=== PATIENT | male | born 1945 | race Caucasian/White ===

== ENCOUNTER 2018-11-25 21:30 | Emergency (ER) | payer MEDICARE, OTHER ==
[2018-11-25] MEDS ORDERED: Magnesium Sulfate 2 GM IV* 2 GM/50 ML BAG IVPB ONE (21:53)
--- NOTE | 2018-11-25 21:55 | ED ---
Shortness of Breath - HPI Summary HPI Summary: This patient is a 73 old M presenting to [facility] with a chief complaint of SOB since prior to arrival. Pt was originally in ED accompanying , and then when trying to leave ED, he had increased difficult breathing. Pt is usually on 3L O2 via nasal cannula. Earlier today, he had shots in neck for pain, and he is not allowed to have prednisone according to his doctor. Pt has a Hx of COPD. - History of Current Complaint Chief Complaint: EDShortnessOfBreath Time Seen by Provider: 11/25/18 21:43 Hx Obtained From: Patient Onset/Duration: Sudden Onset, Lasting Minutes, Still Present Current Severity: Mild Dyspnea At: Rest Aggravating Factors: Nothing Alleviating Factors: Other - nebulizer - Allergy/Home Medications Allergies/Adverse Reactions: Allergies Allergy/AdvReac Type Severity Reaction Status Date / Time ciprofloxacin [From Cipro] Allergy Unknown Verified 11/25/18 21:37 Reaction Details diazepam [From Valium] Allergy Unknown Verified 11/25/18 21:37 Reaction Details diltiazem Allergy Unknown Verified 11/25/18 21:37 Reaction Details duloxetine [From Cymbalta] Allergy Unknown Verified 11/25/18 21:37 Reaction Details pregabalin [From Lyrica] Allergy Unknown Verified 11/25/18 21:37 Reaction Details PMH/Surg Hx/FS Hx/Imm Hx Cardiovascular History: Reports: Hx Hypertension, Other Cardiovascular Problems/ Disorders - Heart Disease Respiratory History: Reports: Hx Chronic Obstructive Pulmonary Disease (COPD), Hx Seasonal Allergies Musculoskeletal History: Reports: Hx Arthritis, Other Musculoskeletal History - Hx of Lumbar Epidural Injection 2011 Psychiatric History: Reports: Hx Anxiety, Hx Depression, Hx Bipolar Disorder - Surgical History Surgery Procedure, Year, and Place: Cardiac Cath with pacemaker; Multiple surgery for fractured right leg; Spine surgery; Left knee MMT and remove r CTS; Cardiac Stents 3 Ablation,cardiac pacemaker; right toe repatir x2; nasal surgery ;Rectal prolapse and muscosal repair. Infectious Disease History: No Infectious Disease History: Denies: Traveled Outside the [place] in Last 30 Days - Social History Lives: With Family Alcohol Use: None Hx Substance Use: No Substance Use Type: Reports: None Substance Use Comment - Amount & Last Used: hydrocodone Hx Tobacco Use: Yes Smoking Status (MU): Former Smoker Type: Cigarettes Review of Systems Negative: Fever Positive: Shortness Of Breath All Other Systems Reviewed And Are Negative: Yes Physical Exam - Summary Physical Exam Summary: Constitutional: Well-developed, Well-nourished, Alert. (-) Distressed Skin: Warm, HENT: Normocephalic; Atraumatic Eyes: Conjunctiva normal Neck: Musculoskeletal ROM normal neck. (-) JVD, (-) Stridor, (-) Tracheal deviation, Bandage over cervical spine, not tender over location of bandages. Cardio: Rhythm regular, tachycardic, Heart sounds normal; Intact distal pulses; The pedal pulses are 2+ and symmetric. Radial pulses are 2+ and symmetric. Pulmonary/Chest wall: Effort normal. (-) Respiratory distress, (-) Wheezes, (-) Rales, Notably prolonged expiratory phase, diffuse wheezing, tachypnic. Increased work of breathing Abd: Soft, (-) tenderness, (-) Distension, (-) Guarding, (-) Rebound Musculoskeletal: (-) Edema Neuro: Alert, Oriented x3 Psych: Mood and affect Normal Triage Information Reviewed: Yes Vital Signs On Initial Exam: Initial Vitals Temp Pulse Resp BP Pulse Ox 97.8 F 110 20 172/97 94 11/25/18 21:30 11/25/18 21:30 11/25/18 21:30 11/25/18 21:30 11/25/18 21:30 Vital Signs Reviewed: Yes Diagnostics - Vital Signs Vital Signs Temp Pulse Resp BP Pulse Ox 11/25/18 21:30 97.8 F 110 20 172/97 94 - Laboratory Lab Statement: Any lab studies that have been ordered have been reviewed, and results considered in the medical decision making process. Re-Evaluation - Re-Evaluation First Eval Re-Evaluation Time: 11:35 Change: Improved Comment: HR 90, Trace wheezing and end of expiratory phase, no increased work of breathing, O2 sat over 95 with baseline 3 L O2, not tachypnic or tachycardic Course/Dx - Course Course Of Treatment: This patient is a 73 old M presenting to [facility] with a chief complaint of SOB since prior to arrival. Pt was originally in ED accompanying , and then when trying to leave ED, he had increased difficult breathing. Pt is usually on 3L O2 via nasal cannula. Earlier today, he had shots in neck for pain, is not allowed to have prednisone according to his doctor. Pt has a Hx of COPD. In the ED course the patient was given nebulizers , fluids. Pt refused steroids. Trace wheezing and end of expiratory phase, no increased work of breathing, O2 sat over 95 with baseline 3 L O2, not tachypnic or tachycardic, This was probably an acute event of COPD exacerbation due to O2 becoming kinked. Pt is still refusing course of steroid. Pt will follow up with PCP. Pt has entire supply of medication, does not need albuterol or anything, he has it all. Patient will be discharged. The patient is agreeable with this plan. - Diagnoses Provider Diagnoses: COPD with acute exacerbation Discharge - Sign-Out/Discharge Documenting (check all that apply): Patient Departure - Discharge Patient Received Moderate/Deep Sedation with Procedure: No - Discharge Plan Condition: Improved Disposition: HOME Patient Education Materials: COPD (Chronic Obstructive Pulmonary Disease) (ED) Referrals: Nuvia Barcenas [Primary Care Provider] - - Billing Disposition and Condition Condition: IMPROVED Disposition: Home - Attestation Statements Document Initiated by Joseph: Yes Documenting Scribe: Mary Davis Provider For Whom Joseph is Documenting (Include Credential): Dr. Taco Dale MD Scribe Attestation: Mary Vega scribed for Dr. Taco Dale MD on 11/26/18 at 0603. Scribe Documentation Reviewed: Yes Provider Attestation: The documentation as recorded by the Mary blake accurately reflects the service I personally performed and the decisions made by , Dr. Taco Dale MD Status of Scribe Document: Viewed
[2018-11-25] MEDS ORDERED: Lactated Ringers 1000 ML Bag* 1,000 ML IV ONE (22:00)
[2018-11-25] MEDS ORDERED: Albuterol/Ipratropium NEB.SOL* Albuterol 2.5 MG/Ipratropium 0.5 MG 3 ML ONE (22:07)
[2018-11-25] MEDS: Albuterol/Ipratropium NEB.SOL* Albuterol 2.5 MG/Ipratropium 0.5 MG 3 ML INH SCH ×3 (22:09→22:22)
[2018-11-25 23:46] VITALS: BP 114/89
== END 2018-11-26 00:03 | disposition home or self-care (01) ==
LOC: ED 21:30
DX: J44.1 Chronic obstructive pulmonary disease with (acute) exacerbation (principal); I10 Essential (primary) hypertension; Z99.81 Dependence on supplemental oxygen; Z88.1 Allergy status to other antibiotic agents; Z88.8 Allergy status to other drugs, medicaments and biological substances; Z87.891 Personal history of nicotine dependence
CPT/HCPCS: 96361; 96365; 99282; A9270-GY; J3475

== ENCOUNTER 2023-03-22 09:42 | Observation (INO) ==
[2023-03-22] MEDS ORDERED: Haloperidol 5 mg/ml SDV IV/IM 5 MG/ML AMP IM ONE (10:14)
[2023-03-22 10:49] LABS: ABS Lymphocytes 0.3 10^3/uL (1.0-4.8); ABS Monocytes 0.2 10^3/uL (0.0-1.1); ABS Neutrophils 7.8 10^3/uL (1.5-7.6); Eosinophil % 0.4 %; Hematocrit 33.9 % (38-53); Hemoglobin 11.2 g/dL (13.2-16.3); Lymphocyte % 3.9 %; Mean Corpuscular Hemoglobin 27.3 pg (27-33); Mean Corpuscular Volume 82.6 fL (80-97); Mean Platelet Volume 7.3 fL (7.5-11.2); Platelet Count 210 10^3/uL (150-450); Red Cell Distribution Width 15.9 % (12-17); White Blood Count 8.4 10^3/uL (3.6-10.2)
[2023-03-22] MEDS ORDERED: Lactated Ringers 1000 ml BAG 1,000 ML IV ONE (11:15)
[2023-03-22 11:22] LABS: Albumin 4.5 g/dL (3.2-5.2); Albumin/Globulin Ratio 1.4 (1-3); Calcium 9.8 mg/dL (8.6-10.3); Creatinine, Serum 2.13 mg/dL (0.67-1.17); Globulin 3.2 g/dL (2-4); Magnesium 2.5 mg/dL (1.9-2.7); Potassium 4.9 mmol/L (3.5-5.0); Total Bilirubin 0.3 mg/dL (0.2-1.0); Total Protein 7.7 g/dL (6.4-8.9); eGFR CKD-EPI 31.7 (>60)
[2023-03-22 12:32] LABS: High Sensitivity Troponin 1 Hr 11 pg/mL (<20)
[2023-03-22 16:03] LABS: Urine Appearance Cloudy; Urine Bilirubin Negative (Negative); Urine Blood Negative (Negative); Urine Color Yellow; Urine Glucose Negative (Negative); Urine Ketones Negative (Negative); Urine Nitrite Negative (Negative); Urine Protein Negative (Negative); Urine Specific Gravity 1.013 (1.002-1.030); Urine Urobilinogen Negative (Negative)
[2023-03-22 16:17] LABS: Urine Bacteria Absent (Absent); Urine Red Blood Cell Trace(0-2/hpf) (Absent); Urine Squamous Epithelial Cell Present (Absent); Urine White Blood Cell 3+(>20/hpf) (Absent)
[2023-03-22] MEDS ORDERED: cefTRIAXone 1 gm/50 mL D5W 1 GM/50 ML BAG IV ONE (18:44)
[2023-03-22] MEDS ORDERED: NS 0.9% 500 ml BAG 500 ML IV ONE (18:47)
[2023-03-22] MEDS ORDERED: NS 0.9% 1000 ml BAG 1,000 ML IV SCH (19:45)
[2023-03-22] MEDS ORDERED: Dextrose 50% Syringe 50 ml 25 GM/50 ML SYRINGE IV PUSH PRN (21:12)
[2023-03-22] MEDS ORDERED: Albuterol HFA INHALER 8 gm MDI INH PRN (21:37)
[2023-03-22] MEDS ORDERED: HYDROcodone/ACETAMIN 5/325 mg TAB PO PRN (21:45)
[2023-03-22] MEDS ORDERED: Albuterol 2.5mg/3 ml (0.083%) NEB.SOLN INH PRN (21:46)
[2023-03-23 00:51] LABS: Calcium 8.8 mg/dL (8.6-10.3); Creatinine, Serum 1.8 mg/dL (0.67-1.17); Potassium 3.8 mmol/L (3.5-5.0); eGFR CKD-EPI 38.8 (>60)
[2023-03-23 01:23] LABS: TSH Ultra Thyroid Stim Horm 0.38 mcIU/mL (0.34-5.60)
[2023-03-23 05:26] LABS: Calcium 8.9 mg/dL (8.6-10.3); Creatinine, Serum 1.53 mg/dL (0.67-1.17); Potassium 3.6 mmol/L (3.5-5.0); eGFR CKD-EPI 47.1 (>60)
[2023-03-23] MEDS ORDERED: Mometasone/Formoter 200/5 MDI INH SCH (07:00)
[2023-03-23] MEDS ORDERED: Isosorbide Mononit ER 30mg TAB PO SCH (09:00)
[2023-03-23] MEDS ORDERED: Aspirin EC 81 mg TAB.EC (enteric coated) PO SCH (09:00)
[2023-03-23] MEDS ORDERED: Potassium Chlor 20 meq TAB.ER PO ONE (09:25)
[2023-03-23 11:41] VITALS: BP 129/78
[2023-03-23] MEDS ORDERED: Albuterol HFA INHALER 8 gm MDI INH PRN (13:44)
[2023-03-23] MEDS ORDERED: cefTRIAXone 1 gm/50 mL D5W 1 GM/50 ML BAG IV SCH (20:00)
== END 2023-03-23 18:35 | disposition home or self-care (01) ==
LOC: EDHOLD 09:42 → ED 09:42 → SUATTDRO 19:32 → MED 03-23 08:11
PROVIDERS: ADMIT Internal Medicine; ATTEND Family Medicine